=== PATIENT | male | born 1970 | race American Indian/Alaskan Native ===

== ENCOUNTER 2017-04-23 16:32 | Emergency (ER) | payer SELFPAY ==
--- NOTE | 2017-04-23 16:40 | ED PDOC ---
HPI: Psych/Substance Abuse Time Seen by Provider: 04/23/17 16:37 Chief Complaint (Nursing): Alcohol Ingestion Chief Complaint (Provider): alcohol intoxication Associated Symptoms: Anger Additional Complaint(s): Pt brought to ER for causing a scene at the train station. Pt reports that he has been drinking today and that he was just making his way back to the half-way. Denies HI/SI/hallucinations. "I just wanna get outta here." Past Medical History Reviewed: Historical Data, Nursing Documentation, Vital Signs - Medical History PMH: No Chronic Diseases - Surgical History Surgical History: No Surg Hx - Family History Family History: States: Unknown Family Hx - Social History Current smoker - smoking cessation education provided: Yes Alcohol: Occasional Drugs: Denies - Allergies Allergies/Adverse Reactions: Allergies Allergy/AdvReac Type Severity Reaction Status Date / Time No Known Allergies Allergy Verified 04/23/17 16:39 Review of Systems ROS Statement: Except As Marked, All Systems Reviewed And Found Negative Neurological: Negative for: Weakness, Numbness, Confusion, Headache, Dizziness Psych: Negative for: Anxiety, Depression, Suicidal ideation, Withdrawal Physical Exam - Reviewed Nursing Documentation Reviewed: Yes Vital Signs Reviewed: Yes - Physical Exam Appears: Positive for: Well (but dissheveled and unkempt), No Acute Distress Head Exam: Positive for: ATRAUMATIC Skin: Positive for: Warm, Dry Eye Exam: Positive for: EOMI, Conjunctival injection ENT: Positive for: Other (poor dentition) Cardiovascular/Chest: Positive for: Regular Rate, Rhythm Respiratory: Negative for: Accessory Muscle Use, Respiratory Distress Gastrointestinal/Abdominal: Negative for: Distended Back: Negative for: Decreased ROM Extremity: Positive for: Normal ROM. Negative for: Deformity Neurologic/Psych: Positive for: Alert, deep tissue massage therapist II-XII (intact grossly), Oriented (x3 ), Gait (steady). Negative for: Motor/Sensory Deficits Disposition - Clinical Impression Clinical Impression: Alcohol intoxication - Disposition Referrals: [facility] [Outside] Disposition: Routine/Home Disposition Time: 16:39 Condition: GOOD Additional Instructions: DRINK IN MODERATION OR DON'T DRINK AT ALL. Instructions: Alcohol Intoxication (ED)
[2017-04-23 16:42] VITALS: BP 131/63; PULSE 99; RESP 18; TEMP 97.3; O2SAT 98
== END 2017-04-23 16:51 | disposition home or self-care (01) ==
LOC: H.ER 16:32
DX: F10.129 Alcohol abuse with intoxication, unspecified (principal)